=== PATIENT | female | born 1990 | race Caucasian/White ===

== ENCOUNTER 2016-09-18 10:25 | Emergency (ER) | payer MEDICAID ==
[2016-09-18] MEDS ORDERED: TETANUS/DIPHTHERIA/PERTUSSIS 0.5 ML SYRINGE IM ONE ×2 (12:37)
== END 2016-09-18 13:00 | disposition home or self-care (01) ==
DX: M25.531 Pain in right wrist (principal); M70.88 Other soft tissue disorders related to use, overuse and pressure other site; M77.8 Other enthesopathies, not elsewhere classified; X50.3XXA Overexertion from repetitive movements, initial encounter; Y93.89 Activity, other specified; Y92.89 Other specified places as the place of occurrence of the external cause; Y99.0 Civilian activity done for income or pay; Z23 Encounter for immunization; F17.200 Nicotine dependence, unspecified, uncomplicated

== ENCOUNTER 2019-12-18 17:40 | Outpatient (CLI) | payer MEDICAID | END 2019-12-18 17:41 | disposition home or self-care (01) | LOC: COV 17:40 | PROVIDERS: ATTEND Family Medicine | DX: R50.9 Fever, unspecified (principal); R53.83 Other fatigue; J02.9 Acute pharyngitis, unspecified; R19.7 Diarrhea, unspecified | CPT/HCPCS: 81599 ==

== ENCOUNTER 2020-03-08 07:00 | Outpatient (CLI) | payer MEDICAID ==
[2020-03-09 19:17] LABS: TRICHOMONAS VAGINALIS DNA NEGATIVE (NEGATIVE)
== END 2020-03-08 23:59 | disposition home or self-care (01) ==
LOC: LAB.R 07:00
PROVIDERS: ATTEND Obstetrics & Gynecology
DX: Z11.3 Encounter for screening for infections with a predominantly sexual mode of transmission (principal)
CPT/HCPCS: 87491; 87591; 87661

== ENCOUNTER 2020-03-08 14:38 | Outpatient (CLI) | payer MEDICAID ==
[2020-03-08 15:12] LABS: ALBUMIN 4.8 g/dL (3.2-5.5); BILIRUBIN,TOTAL 0.8 mg/dL (0.2-1.0); CALCIUM 9.3 mg/dL (8.5-10.3); TOTAL PROTEIN 7.2 g/dL (6.7-8.2)
[2020-03-08 15:40] LABS: HB2 TOTAL 15.5 g/dL; HEMOGLOBIN A1C 0.55 g/dL; HEMOGLOBIN A1C % 5.4 % (4.6-6.2)
[2020-03-09 12:39] LABS: HEPATITIS A IGM NON-REACTIVE (NON-REACTIVE); HEPATITIS B SURFACE ANTIGEN NON-REACTIVE (NON-REACTIVE); HEPATITIS C ANTIBODY NON-REACTIVE (NON-REACTIVE)
[2020-03-09 16:04] LABS: HIV AG/AB 4TH GEN NON-REACTIVE (NON-REACTIVE)
[2020-03-10 14:30] LABS: HSV 2 IGG TYPE SPECIFIC AB <0.90 index
== END 2020-03-08 14:39 | disposition home or self-care (01) ==
LOC: LAB 14:38
PROVIDERS: ATTEND Obstetrics & Gynecology
DX: E66.9 Obesity, unspecified (principal); Z11.3 Encounter for screening for infections with a predominantly sexual mode of transmission; N92.6 Irregular menstruation, unspecified; Z68.39 Body mass index [BMI] 39.0-39.9, adult
CPT/HCPCS: 36415; 80053; 80074; 81599; 83036; 84443; 86592; 86695; 86696; 87389; 87491; 87591; 87661

== ENCOUNTER 2020-03-14 16:20 | Outpatient (CLI) | payer MEDICAID ==
--- NOTE | 2020-03-14 17:41 | Ultrasound Report ---
PROCEDURE: Pelvic w/Transvaginal INDICATIONS: IRREGULAR MENSES TECHNIQUE: Real-time scanning was performed of the pelvic organs, with image documentation. Additional endovagi nal scanning was necessary due to incomplete visualization of the adnexal and endometrial structures by transabdominal scanning. COMPARISON: None. FINDINGS: Transabdominal scanning: Limited scanning through the kidneys shows no hydronephrosis. No pathologi c free abdominal or pelvic fluid. Endovaginal scanning: Uterus: Uterus is normal in size at 9 x 3.2 x 4.1 cm. The uterus appears generally heterogeneous. T he endometrium measures 4 mm in combined thickness. There is a submucosal calcification seen on the right posteriorly measuring 2 x 2 x 2 mm. Nabothian cysts are incidentally noted. Ovaries: The right ovary measures 2.7 x 1.7 x 3.1 cm and the left ovary measures 3 x 2.2 x 2.4 cm. Normal-appearing follicles are seen, which are considered to be within physiologic limits No suspicio us ovarian abnormalities are seen. No adnexal masses are seen. IMPRESSION: No significant pelvic ultrasound abnormality is seen. Reviewed by: William Rao MD on 03/14/2020 4:40 PM BR[facility]ON Approved by: William Rao MD on 03/14/2020 4:40 PM AKJOSE Station ID: [id number]
== END 2020-03-14 16:21 | disposition home or self-care (01) ==
LOC: DI 16:20
PROVIDERS: ATTEND Obstetrics & Gynecology
DX: N92.6 Irregular menstruation, unspecified (principal); Z87.42 Personal history of other diseases of the female genital tract
CPT/HCPCS: 76830; 76856

== ENCOUNTER 2020-05-06 13:41 | Outpatient (CLI) | payer MEDICAID ==
[2020-05-06 13:54] LABS: BASOPHILS % (AUTO) 0.3 %; EOSINOPHILS # (AUTO) 0.1 10^3/uL (0.0-0.7); EOSINOPHILS % (AUTO) 1.4 %; HGB - HEMOGLOBIN 12.9 g/dL (12.0-16.0); LYMPHOCYTES # (AUTO) 2.7 10^3/uL (1.5-3.5); LYMPHOCYTES % (AUTO) 41.9 %; MEAN CORPUSCULAR HEMOGLOBIN 27.9 pg (27.0-31.0); MEAN CORPUSCULAR HGB CONC 32.4 g/dL (32.0-36.0); MEAN PLATELET VOLUME 9.7 fL (7.9-10.8); MONOCYTES # (AUTO) 0.4 10^3/uL (0.0-1.0); MONOCYTES % (AUTO) 6.7 %; NEUTROPHILS # (AUTO) 3.2 10^3/uL (1.5-6.6); NEUTROPHILS % (AUTO) 49.4 %; PLT - PLATELET COUNT 307 10^3/uL (130-450); RED BLOOD COUNT 4.63 10^6/uL (4.20-5.40); RED CELL DISTRIBUTION WIDTH 13.8 % (12.0-15.0); WHITE BLOOD COUNT 6.4 x10^3/uL (4.8-10.8)
== END 2020-05-06 13:42 | disposition home or self-care (01) ==
LOC: LAB 13:41
PROVIDERS: ATTEND Obstetrics & Gynecology
DX: Z01.812 Encounter for preprocedural laboratory examination (principal); N93.8 Other specified abnormal uterine and vaginal bleeding; Z20.828 Contact with and (suspected) exposure to other viral communicable diseases
CPT/HCPCS: 36415; 85025

== ENCOUNTER 2020-05-12 08:36 | Day surgery (SDC) | payer MEDICAID ==
[2020-05-12] MEDS ORDERED: LACTATED RINGERS 1,000 ML IV ONE ×2 (09:00→11:59)
[2020-05-12 09:01] LABS: HCG UR QUAL NEGATIVE
[2020-05-12] MEDS ORDERED: GABAPENTIN 400 MG CAPSULE ONE (09:09)
[2020-05-12] MEDS ORDERED: CELECOXIB 100 MG CAPSULE PO ONE (09:09)
[2020-05-12] MEDS ORDERED: ACETAMINOPHEN 1,000 MG/100 ML 100 ML IV ONE ×2 (09:10→10:12)
--- NOTE | 2020-05-12 09:28 | ANESTHESIA ---
Pre-Anesthesia VS, & Labs - Diagnosis desires sterilization, dysfuctional uterine bleeding - Procedure laparoscopic salpingectomy, myosure hysteroscopy w/endometrial ablation Vital Signs: Temp Pulse Resp BP Pulse Ox 36.4 C L 102 H 16 124/94 H 98 05/12/20 08:50 05/12/20 08:50 05/12/20 08:50 05/12/20 08:50 05/12/20 08:50 Height: 5 ft 1 in Weight (kg): 92.2 kg Body Mass Index: 38.4 BMI Classification: Obese - NPO >8 hours - Is Patient ?: No - Lab Results Current Lab Results: Laboratory Tests 05/12/20 09:04: POC Whole Bld Glucose 97 Lab results reviewed: Yes Home Medications and Allergies Home Medications: Ambulatory Orders Ibuprofen [Motrin] 600 mg PO Q6H PRN 05/06/20 Ibuprofen [Motrin] 600 mg PO Q6H PRN 05/06/20 Allergies/Adverse Reactions: Allergies Allergy/AdvReac Type Severity Reaction Status Date / Time amoxicillin Allergy Rash Verified 05/06/20 14:51 Anes History & Medical History - Anesthetic History Anesthesia Complications: reports: Post-Operative Nausea/Vomiting (tonsils @10), Other-see comment (traumatic mask induction as 8yo) Family history of Anesthesia Complications: Denies Family history of Malignant Hyperthermia: Denies - Medical History Cardiovascular: reports: None Pulmonary: reports: None Gastrointestinal: reports: None Urinary: reports: None Musculoskeletal: reports: None Endocrine/Autoimmune: reports: None Skin: reports: None Smoking Status: Current every day smoker Psychosocial: reports: Anxiety (r/t surgery) History of Cancer?: No - Surgical History Eyes Ears Nose Throat (EENT): Myringotomy (tubes), Tonsil/Adenoidectomy Exam General: Alert, Oriented x3, Cooperative Dental: WNL, Other (broken molar at top L back) Mouth Opening: Greater than 4 Fingerbreadths Neck Mobility: Normal Mallampati classification: II Thyromental Distance: 4-6 cm Respiratory: Lungs clear Cardiovascular: Regular rate Neurological: Normal speech Mental/Cognitive Status: Alert/Oriented X3, Normal for patient Cognitive Status: Within normal limits Plan Anesthesia Type: General Consent for Procedure(s) Verified and Reviewed: Yes Code Status: Attempt Resuscitation ASA classification: 2-Mild systemic disease Is this case an emergency?: No
[2020-05-12] MEDS ORDERED: EPINEPHrine 1 MG/ML AMP ONE (09:54)
[2020-05-12] MEDS ORDERED: LIDOCAINE 1%-EPI 1:100000 20 ML MDV ONE ×2 (09:57)
[2020-05-12] MEDS ORDERED: BUPIVACAINE 0.25%-EPI 1:200000 PF 30 ML VIAL ONE (09:57)
[2020-05-12] MEDS ORDERED: ONDANSETRON 4 MG/2 ML VIAL IVP ONE (10:12)
[2020-05-12] MEDS ORDERED: NEOSTIGMINE 1 MG/1 ML 10 ML MDV IVP ONE (10:12)
[2020-05-12] MEDS ORDERED: fentaNYL 100 MCG/2 ML VIAL IVP ONE (10:12)
[2020-05-12] MEDS ORDERED: PROPOFOL 200 MG/20 ML VIAL IVP ONE (10:12)
[2020-05-12] MEDS ORDERED: ROCURONIUM 50 MG/5 ML VIAL IVP ONE (10:12)
[2020-05-12] MEDS ORDERED: MIDAZOLAM 2 MG/2 ML VIAL IVP ONE (10:12)
[2020-05-12] MEDS ORDERED: LIDOCAINE-MPF 2% 5 ML VIAL IM ONE (10:12)
[2020-05-12] MEDS ORDERED: GLYCOPYRROLATE 1 MG/5 ML VIAL IVP ONE (10:12)
[2020-05-12] MEDS ORDERED: LIDOCAINE 1%-EPI 1:100000 20 ML MDV SUBQ ONE ×2 (10:55)
[2020-05-12] MEDS ORDERED: HYDROmorphone 0.5 MG/0.5 ML SYRINGE IVP PRN (11:13)
[2020-05-12] MEDS ORDERED: ONDANSETRON 4 MG/2 ML VIAL IVP PRN (11:13)
[2020-05-12] MEDS ORDERED: ePHEDrine 50 MG/ML VIAL IVP PRN (11:13)
[2020-05-12] MEDS ORDERED: MORPHINE 2 MG/ML CARPUJECT IVP PRN (11:13)
[2020-05-12] MEDS ORDERED: METOCLOPRAMIDE 10 MG/2 ML VIAL IVP PRN (11:13)
[2020-05-12] MEDS ORDERED: ATROPINE ABBOJECT 1 MG/10 ML SYRINGE IVP PRN (11:13)
[2020-05-12] MEDS ORDERED: NALOXONE 0.4 MG/ML VIAL IVP PRN (11:13)
[2020-05-12] MEDS ORDERED: SILVER NITRATE APPLICATOR TOP ONE ×2 (11:48→11:56)
[2020-05-12] MEDS ORDERED: LACTATED RINGERS 1,000 ML IV SCH (12:00)
--- NOTE | 2020-05-12 12:03 | OPERATIVE REPORT ---
Operative Report - General Procedure Date: 05/12/20 Planned Procedure: Laparoscopic bilateral salpingectomy Hysteroscopy D&C Novasure endometrial ablation Pre-Op Diagnosis: Dysfunctional uterine bleeding. Undesired fertility. Procedure Performed: Laparoscopic bilateral salpingectomy Hysteroscopy D&C Novasure Endometrial ablation Post Op Diagnosis: Same and endometriosis - Procedure Note Primary Surgeon: Otilia Valadez MD Secondary Surgeon: Jose Carver MD Anesthesia Provider: Sergio Brown MD and Jacki Bernal CRNA Anesthesia Technique: General ET tube Pathology: 1) Bilateral tubal segments 2) Uterine contents IV Fluids (mL): 750 Estimated Blood Loss (mL): 5 Urine Output (mL): 5 (Voided prior to in and out catheterization) Indications: Patient is a 34 yo female with dysfunctional uterine bleeding who has failed medical management. She has completed her childbearing and desires sterilization. Options for management were reviewed and patient is opting for surgical management with Hysteroscopy D&C and Novasure ablation. Desires surgical sterilization to reduce the increased risks of complications post-ablation. Findings: Normal uterus, bilateral fallopian tubes, and ovaries. Implants of endometriosis scattered over the anterior uterus and in the cul de sac. Normal appearing appendix. Survey of the abdomen was unremarkable. Hysteroscopy revealed normal appearing uterine cavity and bilateral tubal ostia. Complications: None - Other Other Information/Narrative: Risks benefits and alternatives of the procedure were reviewed. Consent was again confirmed. Patient was brought to the operating room and underwent general anesthesia. She was placed in dorsal lithotomy position with legs resting in yellowfin stirrups. SCDs were in place and activated. Preoperative antibiotics were not indicated. Exam under anesthesia was performed. She was prepped and draped in the usual sterile fashion. Surgical timeout was performed. Bimanual exam was performed. Sterile speculum was placed and [place] uterine manipulator was placed. The base of the umbilicus was anesthetized with intradermal injection of 1% lidocaine with epinephrine. A 5 mm skin incision was made with a scalpel. A 5 mm blunt trocar was inserted under direct visualization using Visiport. Once the port was confirmed to be placed intraperitoneally, the abdomen was insufflated to 15 mmHg with CO2 gas Exploration of the abdomen and pelvis was confirmed that no injury was sustained with placement of the trocar. Two additional 5 mm ports were placed in the right and left lower quadrants, taking care to avoid the epigastric arteries, while under direct visualization via laparoscopic guidance. The abdomen was explored with the laparoscope, with findings as noted. The left Fallopian tube was grasped and elevated and resected from the underlying mesosalpinx with the LigaSure bipolar sealing and cutting device. It was sealed and transected at the insertion site at the cornua. The Fallopian tube was then removed through the lateral port. It was examined and found to be intact. The process was repeated on the right Fallopian tube, again removed and found to be intact. Both pedicles were examined and good hemostasis was noted. The abdomen was partially desufflated. Pedicles were observed under decreased pressure and good hemostasis was again confirmed. All instruments were removed from the abdomen. Skin was closed with interrupted subcuticular stitches using 4-0 Monocryl. Dermabond was applied over the suture sites. Attention was then turned to the hysteroscopy portion of the case. [place] manipulator was removed. Speculum was placed in the vagina and the cervix was visualized. Single-tooth tenaculum was placed at the anterior cervical lip. Paracervical block was administered using a total of 20 cc of 1% lidocaine with epinephrine was injected at the 4:00 and 8:00 positions lateral to the portio of the cervix. The cervical os was serially dilated with Hegar dilators to accommodate the caliber of the diagnostic hysteroscope. Uterus sounded to 9 cm. The cervical length was 3.5 cm. The hysteroscope was inserted and findings were noted as above. Hysteroscope was removed. Sharp curettage D&C was performed with sharp curettage. The Novasure device was then inserted into the uterus. The uterine width was 3.2 cm with a uterine cavity length of 5.5 cm. The Novasure pretest of uterine integrity was without incident. Wattage was 97 johnson and total ablation time was 72 minutes. All instruments were removed from the uterus. Tenaculum was removed. Tenaculum sites were noted to be hemostatic. All instruments were removed from the vagina. Procedure was well-tolerated without complication. Fluid deficit: [address] Carver assisted with retraction and parts of the salpingectomy.
[2020-05-12] MEDS: fentaNYL 100 MCG/2 ML VIAL IVP PRN ×2 (12:16→12:21)
[2020-05-12] MEDS ORDERED: fentaNYL 100 MCG/2 ML VIAL ONE (12:22)
[2020-05-12] MEDS ORDERED: oxyCODONE 5 MG TABLET PO PRN (12:23)
--- NOTE | 2020-05-12 12:42 | ANESTHESIA POST OP EVALUATION ---
Anesthesia Post Eval - Post Anesthesia Eval Vitals: Last Vital Signs Temp 36.4 C L 05/12/20 12:31 Pulse 75 05/12/20 12:31 Resp 15 05/12/20 12:31 BP 113/74 05/12/20 12:31 Pulse Ox 100 05/12/20 12:31 CV Function Including HR & BP: positive: Stable Pain Control: positive: Satisfactory Nausea & Vomiting: positive: Negative Mental Status: positive: Patient Participates Respiratory Status: Airway Patent Hydration Status: Satisfactory
[2020-05-12 13:40] VITALS: BP 120/67
== END 2020-05-12 08:37 | disposition home or self-care (01) ==
LOC: SDS 08:36
PROVIDERS: ATTEND Obstetrics & Gynecology
PROC: 0UT74ZZ Resection of Bilateral Fallopian Tubes, Percutaneous Endoscopic Approach (ICD-10-PCS; principal; 2020-05-12 09:45)
DX: N93.8 Other specified abnormal uterine and vaginal bleeding (principal); Z30.2 Encounter for sterilization; N80.3 Endometriosis of pelvic peritoneum; N80.0 Endometriosis of uterus; E66.9 Obesity, unspecified; Z68.38 Body mass index [BMI] 38.0-38.9, adult; Z87.891 Personal history of nicotine dependence
CPT/HCPCS: 0404T; 58558; 58661; 81025; A9270; J0131; J7120

== ENCOUNTER 2020-07-19 13:30 | Outpatient (CLI) | payer MEDICAID | END 2020-07-19 13:31 | disposition home or self-care (01) | LOC: COV 13:30 | PROVIDERS: ATTEND Family Medicine | DX: M79.10 Myalgia, unspecified site (principal); R53.83 Other fatigue; Z20.828 Contact with and (suspected) exposure to other viral communicable diseases ==

== ENCOUNTER 2021-06-02 21:18 | Emergency (ER) | payer MEDICAID ==
[2021-06-02 21:33] VITALS: BP 124/73
--- NOTE | 2021-06-02 21:42 | ED Physician Documentation ---
PD HPI HEADACHE - Stated complaint Stated Complaint: HEADACHE/VOMIT/CHILLS/HOT - Chief complaint Chief Complaint: Neuro - History obtained from History obtained from: Patient - History of Present Illness Timing - onset: Today (this morning) Timing - duration: Hours (12) Timing - details: Gradual onset, Still present Worst headache ever?: No: Worst headache ever? (has had migraines in the past, so similar intensity but different in location, being right sided and more commonly frontal/global.) Location: Right Quality: Throbbing, Aching Associated symptoms: Nausea, Vomiting, Vision changes (visual lines/blurring on lateral field of vision.). No: Fever, Weakness, Numbness Improved by: Dark room. No: Meds (tried Ibuprofen and Tylenol) Worsened by: Light Contributing factors: No: Hypertension, Recent illness, Trauma Similar symptoms before: Has not had sx before Review of Systems Constitutional: reports: Myalgias. denies: Fever, Chills Eyes: reports: Photophobia Nose: denies: Rhinorrhea / runny nose, Congestion Throat: denies: Sore throat Respiratory: denies: Cough Musculoskeletal: denies: Neck pain, Back pain Neurologic: reports: Headache. denies: Focal weakness, Numbness, Altered mental status PD PAST MEDICAL HISTORY - Past Medical History Cardiovascular: None Respiratory: None Neuro: Headaches, Migraines Endocrine/Autoimmune: None GI: GERD Musculoskeletal: None - Past Surgical History Past Surgical History: No HEENT: Myringotomy (tubes), Tonsil/Adenoidectomy - Present Medications Home Medications: Ambulatory Orders Medication Instructions Recorded Confirmed Ondansetron Odt [Zofran] 4 mg TL Q6H PRN #10 tablet 06/02/21 SUMAtriptan [Imitrex] 25 mg PO Q6H PRN #5 tablet 06/02/21 - Allergies Allergies/Adverse Reactions: Allergies Allergy/AdvReac Type Severity Reaction Status Date / Time amoxicillin Allergy Rash Verified 06/02/21 21:33 - Social History Does the pt smoke?: Yes Smoking Status: Current every day smoker Does the pt drink ETOH?: Yes Does the pt have substance abuse?: No - Immunizations Immunizations: TDAP >10years/unknown - POLST Patient has POLST: No PD ED PE NORMAL - Vitals Vital signs reviewed: Yes - General General: Alert and oriented X 3, Well developed/nourished, Other (appears uncomfortable) - HEENT HEENT: PERRL, EOMI (light sensitive. Anterior and posterior chambers appear clear. ), Pharynx benign - Neck Neck: Supple, no meningeal sign, No adenopathy - Cardiac Cardiac: RRR, No murmur - Respiratory Respiratory: Clear bilaterally - Derm Derm: Normal color, Warm and dry - Neuro Neuro: Alert and oriented X 3, social security specialist 2-12 intact, No motor deficit, No sensory deficit, Normal speech Eye Opening: Spontaneous Motor: Obeys Commands Verbal: Oriented GCS Score: 15 Results - Vitals Vitals: Vital Signs - 24 hr 06/02/21 21:30 Temperature 36.6 C Heart Rate 75 Respiratory 16 Rate Blood Pressure 124/73 O2 Saturation 100 Oxygen O2 Source Room air PD MEDICAL DECISION MAKING - ED course Complexity details: re-evaluated patient (improved with Toradol/COmpazine IV with fluids. Near resolution and patient feels good and smiling. Feeling able for discharge. ), considered differential, d/w patient Departure - Departure Disposition: Home, Self Care Clinical Impression: Migraine headache, Nausea and vomiting Condition: Stable Record reviewed to determine appropriate education?: Yes Instructions: ED Headache Migraine Prescriptions: SUMAtriptan [Imitrex] 25 mg PO Q6H PRN #5 tablet PRN Reason: Migraine Ondansetron Odt [Zofran] 4 mg TL Q6H PRN #10 tablet PRN Reason: Nausea / Vomiting Comments: Seem like a migraine type headache and improved with medications typically used for that. Rest at home and stay well-hydrated. Hopefully you will sleep well tonight. For subsequent similar headaches in the future, he could try combination of ondansetron for nausea and sumatriptan for migraine and see if it has improvement in your symptoms with that. Follow-up with your primary care as needed. I transmitted the prescriptions to [facility]. Discharge Date/Time: 06/02/21 23:24
[2021-06-02] MEDS ORDERED: diphenhydrAMINE INJ 50 MG/ML VIAL IVP STA (21:58)
[2021-06-02] MEDS ORDERED: KETOROLAC 30 MG/ML VIAL IVP STA (21:58)
[2021-06-02] MEDS ORDERED: PROCHLORPERAZINE 10 MG/2 ML VIAL IVP STA (21:58)
[2021-06-02] MEDS ORDERED: SODIUM CHLORIDE 0.9% 1,000 ML IV STA (21:58)
== END 2021-06-02 23:24 | disposition home or self-care (01) ==
LOC: ED 21:18
DX: G43.909 Migraine, unspecified, not intractable, without status migrainosus (principal); R11.2 Nausea with vomiting, unspecified; F17.200 Nicotine dependence, unspecified, uncomplicated
CPT/HCPCS: 36415; 96374; 96375; 99283; 99284; J1200

== ENCOUNTER 2021-10-17 07:00 | Outpatient (CLI) | payer MEDICAID ==
[2021-10-17 21:27] LABS: BACTERIAL VAGINOSIS DNA NEGATIVE (NEGATIVE); CANDIDA GLABRATA DNA NEGATIVE (NEGATIVE); CANDIDA GROUP DNA POSITIVE (NEGATIVE); CANDIDA KRUSEI DNA NEGATIVE (NEGATIVE); TRICHOMONAS VAGINALIS DNA NEGATIVE (NEGATIVE)
== END 2021-10-17 23:59 | disposition home or self-care (01) ==
LOC: LAB.N 07:00
PROVIDERS: ATTEND Nurse Practitioner
DX: N89.8 Other specified noninflammatory disorders of vagina (principal)
CPT/HCPCS: 87661; 87801

== ENCOUNTER 2022-08-04 18:38 | Emergency (ER) | payer MEDICAID ==
[2022-08-04 19:02] LABS: BASOPHILS % (AUTO) 0.4 %; EOSINOPHILS # (AUTO) 0.1 10^3/uL (0.0-0.7); EOSINOPHILS % (AUTO) 0.6 %; HCT - HEMATOCRIT 37.9 % (37.0-47.0); HGB - HEMOGLOBIN 11.9 g/dL (12.0-16.0); LYMPHOCYTES % (AUTO) 25.2 %; MEAN CORPUSCULAR HGB CONC 31.4 g/dL (32.0-36.0); MEAN CORPUSCULAR VOLUME 86.1 fL (81.0-99.0); MEAN PLATELET VOLUME 9.4 fL (7.9-10.8); MONOCYTES # (AUTO) 0.4 10^3/uL (0.0-1.0); MONOCYTES % (AUTO) 5.5 %; NEUTROPHILS # (AUTO) 5.3 10^3/uL (1.5-6.6); PLT - PLATELET COUNT 343 10^3/uL (130-450); RED CELL DISTRIBUTION WIDTH 13.4 % (12.0-15.0); WHITE BLOOD COUNT 7.8 x10^3/uL (4.8-10.8)
[2022-08-04 19:12] LABS: ALBUMIN/GLOBULIN RATIO 1.5 (1.0-2.2); CALCIUM 8.7 mg/dL (8.5-10.3); CREATININE 0.8 mg/dL (0.4-1.0); POTASSIUM 3.9 mmol/L (3.5-5.0); TOTAL PROTEIN 6.6 g/dL (6.7-8.2)
--- NOTE | 2022-08-04 19:53 | ED Physician Documentation ---
History of Present Illness - Stated complaint Stated Complaint: FEMALE - Chief complaint Chief Complaint: Abd Pain - History obtained from History obtained from: Patient - History of Present Illness Timing: Today Pain level max: 4 Pain level now: 3 - Additonal information Additional information: Patient is a 31-year-old female who presents to the emergency department stating that she was trying to have a bowel movement today and had 2 small bowel movements, she noticed when she wiped and there is bright red blood on the toilet paper. Has never had similar symptoms previously. No fevers. No chills. No nausea or vomiting. She states that she has having right lower quadrant abdominal pain that started today. Worse with movement, better with rest. She states that she has had a uterine ablation and no longer has menses. Review of Systems Constitutional: denies: Fever, Chills Respiratory: denies: Cough GI: denies: Nausea, Vomiting, Diarrhea : denies: Now EGA Skin: denies: Rash Musculoskeletal: denies: Neck pain, Back pain Neurologic: denies: Headache PD PAST MEDICAL HISTORY - Past Medical History Cardiovascular: None Respiratory: None Neuro: Headaches, Migraines Endocrine/Autoimmune: None GI: GERD Musculoskeletal: None - Past Surgical History Past Surgical History: Yes /[employer]ERK: Endometrial ablation HEENT: Myringotomy (tubes), Tonsil/Adenoidectomy - Present Medications Home Medications: Ambulatory Orders Medication Instructions Recorded Confirmed Ondansetron Odt [Zofran] 4 mg TL Q6H PRN #10 tablet 06/02/21 SUMAtriptan [Imitrex] 25 mg PO Q6H PRN #5 tablet 06/02/21 Dicyclomine [Bentyl] 10 mg PO QID PRN #30 cap 08/04/22 Meloxicam [Mobic] 7.5 mg PO BID PRN #20 tablet 08/04/22 - Allergies Allergies/Adverse Reactions: Allergies Allergy/AdvReac Type Severity Reaction Status Date / Time amoxicillin Allergy Rash Verified 08/04/22 18:45 - Social History Does the pt smoke?: Yes Smoking Status: Current every day smoker Does the pt drink ETOH?: Yes Does the pt have substance abuse?: No - Immunizations Immunizations: TDAP >10years/unknown - POLST Patient has POLST: No PD ED PE NORMAL - Vitals Vital signs reviewed: Yes - General General: Alert and oriented X 3, No acute distress - HEENT HEENT: Moist mucous membranes - Neck Neck: Supple, no meningeal sign - Cardiac Cardiac: RRR, Strong equal pulses - Respiratory Respiratory: No respiratory distress, Clear bilaterally - Abdomen Abdomen: Soft, Non distended, Other (Tender to palpation right lower quadrant. No peritoneal signs.) - Rectal Rectal: Other (Normal rectal exam. No visible hemorrhoids. No tenderness. TIMA Gomez present) - Back Back: No CVA TTP, No spinal TTP - Derm Derm: Warm and dry, No rash - Extremities Extremities: No edema, No calf tenderness / cord - Neuro Neuro: Alert and oriented X 3 Results - Vitals Vitals: Vital Signs - 24 hr 08/04/22 08/04/22 08/04/22 18:42 19:58 21:26 Temperature 36.5 C 37.1 C Heart Rate 75 78 94 Respiratory 20 16 16 Rate Blood Pressure 111/77 122/85 H 123/85 H O2 Saturation 100 99 100 08/04/22 22:52 Temperature 37.3 C Heart Rate 80 Respiratory 16 Rate Blood Pressure 116/80 O2 Saturation 99 Oxygen O2 Source Room air - Labs Labs: Laboratory Tests 08/04/22 08/04/22 08/04/22 18:54 18:54 21:13 WBC 7.8 RBC 4.40 Hgb 11.9 L Hct 37.9 MCV 86.1 MCH 27.0 MCHC 31.4 L RDW 13.4 Plt Count 343 MPV 9.4 Neut # (Auto) 5.3 Lymph # (Auto) 2.0 Cannon # (Auto) 0.4 Eos # (Auto) 0.1 Baso # (Auto) 0.0 Absolute Nucleated RBC 0.00 Nucleated RBC % 0.0 Sodium 136 Potassium 3.9 Chloride 104 Carbon Dioxide 23 Anion Gap 9.0 BUN 12 Creatinine 0.8 Estimated GFR (MDRD) 83 L Glucose 136 H Calcium 8.7 Total Bilirubin 1.0 AST 14 ALT 10 Alkaline Phosphatase 57 Total Protein 6.6 L Albumin 4.0 Globulin 2.6 Albumin/Globulin Ratio 1.5 Lipase 35 Urine Color YELLOW Urine Clarity CLEAR Urine pH 6.0 Ur Specific [place] 1.020 Urine Protein NEGATIVE Urine Glucose (UA) NEGATIVE Urine Ketones TRACE Urine Occult Blood NEGATIVE Urine Nitrite NEGATIVE Urine Bilirubin NEGATIVE Urine Urobilinogen 0.2 (NORMAL) Ur Leukocyte Esterase NEGATIVE Ur Microscopic Review NOT INDICATED Urine Culture Comments NOT INDICATED - Rads (name of study) CT abdomen pelvis Radiology: Final report received, EMP read contemporaneously, See rad report (No acute abnormality) PD MEDICAL DECISION MAKING - ED course Complexity details: reviewed results, re-evaluated patient, considered differential, d/w patient ED course: No acute findings on CT scan of the abdomen pelvis. Patient is well-appearing, nontoxic. Afebrile. She initially declined pain medication but near the end of her visit accepted pain medication. Unclear etiology of her abdominal pain and blood in the stool today. No evidence of diverticulitis. Possible constipation? No visible hemorrhoids. We will place the patient on Bentyl for home and have her follow-up closely with her doctor. No evidence of appendicitis. Patient counseled regarding signs and symptoms for which I believe and urgent re-evaluation would be necessary. Patient with good understanding of and agreement to plan and is comfortable going home at this time This document was made in part using voice recognition software. While efforts are made to proofread this document, sound alike and grammatical errors may occur. Departure - Departure Disposition: 01 Home, Self Care Clinical Impression: Abdominal pain Qualifiers: Abdominal location: right lower quadrant Qualified Code(s): R10.31 - Right lower quadrant pain Condition: Good Instructions: ED Abdominal Pain Female Non-Specific Abdominal Pain Follow-Up: your,doctor in 3 days if not better [Other] Prescriptions: Dicyclomine [Bentyl] 10 mg PO QID PRN #30 cap PRN Reason: Abdominal Pain Meloxicam [Mobic] 7.5 mg PO BID PRN #20 tablet PRN Reason: Pain Comments: Your laboratory testing and CT scan did not show any acute abnormalities tonight. We will trial you on medication for home to help with your abdominal pain. This should improve over the next 1 to 2 days. If you are worsening or failing to improve, please return for repeat evaluation. [facility] prescriptions [facility] to [facility] in [place]. Discharge Date/Time: 08/04/22 22:52
[2022-08-04] MEDS ORDERED: iohexoL-300 100 ML VIAL ONE (20:00)
[2022-08-04] MEDS ORDERED: iohexoL-300 100 ML VIAL IVP ONE (21:26)
[2022-08-04 21:42] LABS: BILIRUBIN,URINE NEGATIVE (NEGATIVE); GLUCOSE, URINE (UA) NEGATIVE (NEGATIVE); KETONES,URINE (UA) TRACE mg/dL (NEGATIVE); LEUKOCYTE ESTERASE, URINE NEGATIVE (NEGATIVE); NITRITE,URINE NEGATIVE (NEGATIVE); OCCULT BLOOD,URINE NEGATIVE (NEGATIVE); PROTEIN,URINE NEGATIVE (NEGATIVE); UROBILINOGEN,URINE 0.2 (NORMAL) E.U./dL (NORMAL)
[2022-08-04 21:47] LABS: CLARITY,URINE CLEAR (CLEAR)
--- NOTE | 2022-08-04 22:31 | CT Report ---
PROCEDURE: ABDOMEN/PELVIS W INDICATIONS: RLQ abd pain CONTRAST: 100 MO OMNI 300 TECHNIQUE: After the administration of intravenous contrast, 5 mm thick sections acquired from the diaphragms to the symphysis. 5 mm thick coronal and sagittal reformats were acquired. For radiation dose reducti on, the following was used: automated exposure control, adjustment of mA and/or kV according to leo ent size. COMPARISON: None. FINDINGS: Image quality: Excellent. Lung bases: Unremarkable. Heart: Heart is normal in size. ABDOMEN: Liver:There is minimal focal fatty infiltration in the anterior left hepatic lobe. Gallbladder: Within normal limits without calcified gallstones. Biliary ducts: No biliary ductal dilatation. Pancreas: Unremarkable. Spleen: Normal in size. Adrenal Glands: No adrenal nodules. Kidneys and Ureters: No hydronephrosis. Stomach and Bowel: Stomach, small bowel loops, and colon are normal in caliber and wall thickness. T he appendix is not discretely visualized but no definite abnormal appendix or pericecal inflammatory changes are identified to suggest acute appendicitis. Peritoneum: No abnormal intraperitoneal fluid. No free air. Ventral Wall: No hernia. Abdominal Nodes: No retroperitoneal or mesenteric adenopathy by size criteria. Vessels: Aorta and inferior vena cava are normal in size. PELVIS: Pelvic Organs: Unremarkable. Bladder: The urinary bladder is partially distended with mild concentric bladder wall thickening and mild fat stranding suggestive of a cystitis. Recommend correlation with urinalysis. Pelvic Nodes: No enlarged lymph nodes. Miscellaneous: No inguinal hernias are seen. IMPRESSION: 1. Appendix not discretely well visualized but there is no definite evidence of acute appendicitis. 2. Mild bladder wall thickening may reflect a cystitis. Recommend correlation with urinalysis. Reviewed by: Nikolay Durbin MD on 08/04/2022 10:29 PM [facility] Approved by: Nikolay Durbin MD on 08/04/2022 10:29 PM PST Station ID: [id number]
[2022-08-04] MEDS ORDERED: KETOROLAC 30 MG/ML VIAL IVP STA (22:42)
[2022-08-04] MEDS ORDERED: DICYCLOMINE 10 MG CAPSULE PO STA (22:42)
[2022-08-04 22:54] VITALS: BP 116/80
== END 2022-08-04 22:52 | disposition home or self-care (01) ==
LOC: ED 18:38
DX: R10.31 Right lower quadrant pain (principal); K92.1 Melena; F17.200 Nicotine dependence, unspecified, uncomplicated
CPT/HCPCS: 36415; 74177; 80053; 81003; 83690; 85025; 96374; 99282; 99284; A9270; Q9967; 81001; 87086

== ENCOUNTER 2023-08-15 14:15 | Outpatient (CLI) | payer BC, MEDICAID | END 2023-08-15 14:30 | disposition home or self-care (01) | LOC: LAB.N 14:15 | PROVIDERS: ATTEND Nurse Practitioner | DX: R07.0 Pain in throat (principal) | CPT/HCPCS: 87070 ==

== ENCOUNTER 2024-04-09 13:18 | Outpatient (CLI) | payer BC | END 2024-04-09 23:59 | disposition critical access hospital (66) | LOC: EMS 13:18 | DX: R10.30 Lower abdominal pain, unspecified (principal) | CPT/HCPCS: A0425; A0427 ==

== ENCOUNTER 2024-04-09 13:52 | Emergency (ER) | payer BC ==
--- NOTE | 2024-04-09 13:58 | ED Physician Documentation ---
PD HPI ABD PAIN - Stated complaint Stated Complaint: LOW ABD PX - History obtained from History obtained from: Patient - History of Present Illness Timing - onset: How many hours ago (1), Today Timing - duration: Hours (1) Timing - details: Abrupt onset, Still present Quality: Aching, Sharp, Pain Location: Suprapubic, LLQ Radiation: Lower back. No: Left flank Improved by: No: Laying still Worsened by: Moving Associated symptoms: Nausea. No: Diarrhea, Constipation, Dysuria, Vaginal bleeding Recently seen: Emergency Dept (1 month ago for siilar with labs and US/CT with results per pt showing some mild colonic wall thckening dx colitis. Better after few days with NSAIDs and some pain meds. No symptoms recurring until now.) Review of Systems Constitutional: denies: Fever, Chills Nose: denies: Rhinorrhea / runny nose, Congestion Throat: denies: Sore throat Respiratory: denies: Cough GI: denies: Constipation, Diarrhea : denies: Dysuria, Frequency, Discharge, Vaginal bleeding (preious endometrial ablation so does not have periods) Neurologic: denies: Near syncope PD PAST MEDICAL HISTORY - Past Medical History Cardiovascular: None Respiratory: None Neuro: Headaches, Migraines Endocrine/Autoimmune: None GI: GERD [employer]: Other (endometrial ablation due to DUB and painful periods. Consideration of endometriosis but pains improved after endometrial ablation so no further investigation. ) Musculoskeletal: None - Past Surgical History Past Surgical History: Yes /[employer]: Endometrial ablation HEENT: Myringotomy (tubes), Tonsil/Adenoidectomy - Present Medications Home Medications: Ambulatory Orders Medication Instructions Recorded Confirmed Ibuprofen [Motrin] 1 tab PO PRN PRN 04/09/24 04/09/24 Meloxicam [Mobic] 7.5 mg PO BID 10 Days #20 tablet 04/09/24 Ondansetron Odt [Zofran] 4 mg TL Q6H PRN #10 tablet 04/09/24 Oxycodone HCl/Acetaminophen 1 each PO Q6H PRN #20 tablet 04/09/24 [Percocet 5-325 mg Tablet] - Allergies Allergies/Adverse Reactions: Allergies Allergy/AdvReac Type Severity Reaction Status Date / Time amoxicillin Allergy Rash Verified 04/09/24 14:02 - Social History Does the pt smoke?: Yes Smoking Status: Current every day smoker Does the pt drink ETOH?: Yes Does the pt have substance abuse?: No - Immunizations Immunizations are current?: No Immunizations: TDAP >10years/unknown - POLST Patient has POLST: No PD ED PE NORMAL - Vitals Vital signs reviewed: Yes - General General: Alert and oriented X 3, Well developed/nourished, Other (appears significant discomfort left abd pain) - Cardiac Cardiac: RRR, No murmur - Respiratory Respiratory: No respiratory distress, Clear bilaterally - Abdomen Abdomen: Normal bowel sounds, Soft, Non distended, Other (tender to palpation and percussion mid to left abd suprapubic and also up some RLQ and left mid abd. ) - Female Female : Deferred - Derm Derm: Normal color, Warm and dry Results - Vitals Vitals: Oxygen O2 Source Room air - Labs Labs: Laboratory Tests 04/09/24 04/09/24 04/09/24 14:42 14:42 15:30 WBC 12.0 H RBC 4.82 Hgb 13.1 Hct 43.6 MCV 90.5 MCH 27.2 MCHC 30.0 L RDW 13.6 Plt Count MPV 10.9 H Neut # (Auto) 9.9 H Lymph # (Auto) 1.4 [place] # (Auto) 0.5 Eos # (Auto) 0.1 Baso # (Auto) 0.0 Absolute Nucleated RBC 0.00 Nucleated RBC % 0.0 Manual Slide Review Indicated Platelet Estimate NORMAL (130-450,000) Platelet Morphology NORMAL APPEARANCE RBC Morph Micro Appear NORMAL APPEARANCE Sodium 137 Potassium 3.9 Chloride 107 Carbon Dioxide 23 Anion Gap 7.0 BUN 11 Creatinine 0.7 Estimated GFR (MDRD) 95 Glucose 106 H Calcium 9.4 Total Bilirubin 0.4 AST 12 ALT 6 L Alkaline Phosphatase 58 C-Reactive Protein < 0.5 Total Protein 6.8 Albumin 4.4 Globulin 2.4 Albumin/Globulin Ratio 1.8 Lipase 30 Urine Color YELLOW Urine Clarity CLEAR Urine pH 6.5 Ur Specific [place] 1.015 Urine Protein NEGATIVE Urine Glucose (UA) NEGATIVE Urine Ketones NEGATIVE Urine Occult Blood NEGATIVE Urine Nitrite NEGATIVE Urine Bilirubin NEGATIVE Urine Urobilinogen 0.2 (NORMAL) Ur Leukocyte Esterase NEGATIVE Ur Microscopic Review NOT INDICATED Urine Culture Comments NOT INDICATED Urine HCG, Qual NEGATIVE - Rads (name of study) abd pelvic CT Relevant Findings:: Prelim report reviewed (no acute process seen), EMP independent interpretation of test PD Medical Decision Making - ED course Complexity details: reviewed results (abd/pelvic CT is normal. I feel this would be able to seed cone picker on stone, divertic, abscess/cyst, free fluid and would have some swelling/inflammation for ovarian torsion (CT would have similar findings to US per UpToDate). I did CT due to concern for other causes too. ), re- evaluated patient (much improved pain after toradol, zofran and dilaudid.pain was increasing again some after imaging, so repeat dose pain meds. CT and labs normal. Consider still colitis or ovarian pain. No findings to suggest torsion nor rupture. had similar a month ago, and could consider endometriosis.), considered differential (pain abrupt LLQ but with pain to left back and some to right. Consider ovarian cyst, torsion, rupture, kidney stone certainly, less likely divertic or appy. ), d/w patient Departure - Departure Disposition: 01 Home, Self Care Clinical Impression: Left lower quadrant abdominal pain Condition: Stable Record reviewed to determine appropriate education?: Yes Instructions: ED Abdominal Pain Female Non-Specific Abdominal Pain Prescriptions: Meloxicam [Mobic] 7.5 mg PO BID 10 Days #20 tablet Oxycodone HCl/Acetaminophen [Percocet 5-325 mg Tablet] 1 each PO Q6H PRN #20 tablet PRN Reason: pain Ondansetron Odt [Zofran] 4 mg TL Q6H PRN #10 tablet PRN Reason: Nausea / Vomiting Comments: Your CT scan did not show any obvious cause for the pain. There was not noted any intestinal wall thickness or such. That does not preclude the pain coming from intestinal source as was thought from the [facility] visit a month ago. We had requested records from [facility] and had not cut them as yet. At this point we can go with the idea of possibly colitis. Other consideration could be endometriosis or some other ovarian cramping pain or such. Even though you have had the endometrial ablation you will still have likely periodic and rhythmic hormone cycles that can cause ovarian pains or endometriosis pains, if that were it. Consider follow up with [employer] to see if further eval for that. A pelvic MRI can be reasonable for evaluating that. For colitis type pains, colonoscopy could be considered. Follow up with Gastroenterology; see if your insurance needds referrals or if you can call self-refer. Otherwise I did prescribe some medication for anti-inflammatory regularly for the next up to 10 days. Ondansetron if needed for nausea. To that add Tylenol 506 and 50 mg every 4-6 hours if needed. Then in addition hydrocodone pain medicine every 6 hours if needed for worse pain. Return to the ER if needed if uncontrolled symptoms despite these. I sent a prescription to your preferred pharmacy. I am prescribing a short course of narcotic pain medication for you. These are potentially dangerous and addictive medications that should be used carefully. These medications may constipate you. Take an [id number] stool softener such as docusate twice daily with plenty of water while taking these medications. If you go 24 hours without a bowel movement, take [id number] MiraLAX, per package instructions. Do not drink or drive while taking these medications. If you received narcotic or sedating medications while in the emergency department do not drive for 24 hours. Store this medication in a safe, secure place and out of reach of children. It is a violation of federal law to give or sell this medication to another person or to use in a manner other than prescribed. The ED will not refill narcotic prescriptions, including prescriptions lost or stolen. You can dispose of unwanted medications at the [facility]'s office or at several pharmacies such as [facility]. Off work today tomorrow and the next. See how you feel after that. Forms: Activity restrictions Discharge Date/Time: 04/09/24 19:31
[2024-04-09 14:48] LABS: BASOPHILS % (AUTO) 0.3 %; EOSINOPHILS # (AUTO) 0.1 10^3/uL (0.0-0.7); EOSINOPHILS % (AUTO) 0.6 %; HCT - HEMATOCRIT 43.6 % (37.0-47.0); HGB - HEMOGLOBIN 13.1 g/dL (12.0-16.0); LYMPHOCYTES # (AUTO) 1.4 10^3/uL (1.5-3.5); LYMPHOCYTES % (AUTO) 11.5 %; MEAN CORPUSCULAR HEMOGLOBIN 27.2 pg (27.0-31.0); MEAN CORPUSCULAR VOLUME 90.5 fL (81.0-99.0); MEAN PLATELET VOLUME 10.9 fL (7.9-10.8); MONOCYTES # (AUTO) 0.5 10^3/uL (0.0-1.0); MONOCYTES % (AUTO) 4.1 %; NEUTROPHILS # (AUTO) 9.9 10^3/uL (1.5-6.6); NEUTROPHILS % (AUTO) 83.1 %; RED BLOOD COUNT 4.82 10^6/uL (4.20-5.40); RED CELL DISTRIBUTION WIDTH 13.6 % (12.0-15.0)
[2024-04-09 14:51] LABS: SLIDE REVIEW? Indicated
[2024-04-09] MEDS: HYDROmorphone 1 MG/ML CARPUJECT IVP STA ×2 (14:52→19:20)
[2024-04-09] MEDS: SODIUM CHLORIDE 0.9% 1,000 ML IV STA (14:53)
[2024-04-09] MEDS: KETOROLAC 15 MG/ML VIAL IVP STA (14:53)
[2024-04-09] MEDS ORDERED: iohexoL-300 100 ML VIAL ONE (14:53)
[2024-04-09 15:06] LABS: ALBUMIN 4.4 g/dL (3.2-5.5); ALBUMIN/GLOBULIN RATIO 1.8 (1.0-2.2); ALKALINE PHOSPHATASE 58 IU/L (42-121); ALT ALANINE AMINOTRANSFERASE 6 IU/L (10-60); AST ASPARTATE AMINOTRANSFERASE 12 IU/L (10-42); BILIRUBIN,TOTAL 0.4 mg/dL (0.2-1.0); BUN - BLOOD UREA NITROGEN 11 mg/dL (6-20); CALCIUM 9.4 mg/dL (8.5-10.3); CARBON DIOXIDE - CO2 23 mmol/L (21-32); CHLORIDE 107 mmol/L (101-111); CREATININE 0.7 mg/dL (0.6-1.3); CRP - C-REACTIVE PROTEIN < 0.5 mg/dL (<0.5); GFR - MDRD 95 (>89); GLUCOSE 106 mg/dL (74-104); LIPASE 30 U/L (11-82); POTASSIUM 3.9 mmol/L (3.5-4.5); SODIUM 137 mmol/L (135-145); TOTAL PROTEIN 6.8 g/dL (6.4-8.9)
[2024-04-09 15:21] LABS: PLATELET ESTIMATE, MANUAL NORMAL (130-450,000) (NORMAL); PLATELET MORPHOLOGY NORMAL APPEARANCE (NORMAL); RBC MORPHOLOGY (MULTIPLE) NORMAL APPEARANCE (NORMAL)
[2024-04-09 16:12] LABS: BILIRUBIN,URINE NEGATIVE (NEGATIVE); GLUCOSE, URINE (UA) NEGATIVE (NEGATIVE); KETONES,URINE (UA) NEGATIVE (NEGATIVE); LEUKOCYTE ESTERASE, URINE NEGATIVE (NEGATIVE); NITRITE,URINE NEGATIVE (NEGATIVE); OCCULT BLOOD,URINE NEGATIVE (NEGATIVE); PH,URINE 6.5 PH (5.0-7.5); PROTEIN,URINE NEGATIVE (NEGATIVE); UROBILINOGEN,URINE 0.2 (NORMAL) E.U./dL (NORMAL)
[2024-04-09 16:15] LABS: CLARITY,URINE CLEAR (CLEAR); HCG UR QUAL NEGATIVE
[2024-04-09] MEDS: iohexoL-300 100 ML VIAL IVP ONE (16:56)
--- NOTE | 2024-04-09 17:56 | CT Report ---
PROCEDURE: Abdomen/Pelvis W INDICATIONS: RLQ Abdominal pain, appendicitis suspected CONTRAST: 100ml [id number] TECHNIQUE: After the administration of intravenous contrast, a CT scan of the abdomen and pelvis was performed. Images were recorded and evaluated at appropriate window settings. Reformats: coronal and sagittal. F or radiation dose reduction, the following was used: automated exposure control, adjustment of mA and /or kV according to patient size. COMPARISON: 08/04/2022. FINDINGS: Image quality: Diagnostic. Lower chest: Unremarkable. Liver: No solid mass. Gallbladder: No radiopaque stones or wall thickening. Biliary tree: No intrahepatic or extrahepatic dilation, accounting for age. Spleen: No splenomegaly. Pancreas: No pancreatic ductal dilation. Adrenals: No adrenal nodule. Kidneys and ureters: No hydronephrosis. No renal cystic lesion which requires follow up. No solid mas s. Stomach, bowel and peritoneum: No gastric or small bowel dilation. No abnormal wall thickening. No pa thologic free fluid. Appendix is not definitively identified. No abnormally thickened bowel loops or mesenteric fat stranding in right lower quadrant is seen. No abscess collection. Lymph nodes: No central or retroperitoneal adenopathy. Vessels: No infrarenal aortic aneurysm. Patent portal vein. PELVIS Reproductive organs: Unremarkable. Bladder: No abnormal wall thickening, accounting for underdistention. Pelvic lymph nodes: No pelvic adenopathy by size criteria. Bones: No aggressive osseous abnormality. Other: No significant ventral or inguinal hernia. IMPRESSION: 1. Appendix is not definitively identified on this study. No secondary CT signs of acute appendicitis is seen in right lower quadrant abdomen. No bowel obstruction or abnormal bowel wall thickening. No free fluid of free air. 2. No obstructing renal stones or hydronephrosis. Reviewed by: Rocky Adams MD on 04/09/2024 5:55 PM PDT Approved by: Rocky Adams MD on 04/09/2024 5:55 PM PDT Station ID: [id number]
[2024-04-09 19:29] VITALS: BP 121/88; O2SAT 99
== END 2024-04-09 19:31 | disposition home or self-care (01) ==
LOC: ED 13:52
DX: R10.32 Left lower quadrant pain (principal); F17.200 Nicotine dependence, unspecified, uncomplicated
CPT/HCPCS: 36415; 74177; 80053; 81003; 81025; 83690; 85025; 86140; 96374; 96375; 96376; 99284; J1170; Q9967; 81001; 87086